=== PATIENT | male | born 1975 | race Caucasian/White ===

== ENCOUNTER → 2020-08-15 11:14 | Outpatient (CLI) | payer OTHER, SELFPAY ==
[2020-08-15 19:53] LABS: COVID19 - ORCAS (NP or Nasal) Negative (Negative)
== END ==
PROVIDERS: Visit Provider Physician Assistant Medical
DX: Z20.822 Contact with and (suspected) exposure to COVID-19 (principal)
CPT/HCPCS: U0003

== ENCOUNTER → 2021-01-26 09:06 | Outpatient (CLI) | payer OTHER, SELFPAY ==
[2021-01-26 19:55] LABS: Add Manual Diff / Slide Review NO; Basophils Absolute Auto 0 /uL (0-100); Eosinophils Absolute Auto 100 /uL (0-450); Hematocrit 40.3 % (41-53); Hemoglobin 13.5 g/dL (13.5-17.5); Lymphocytes Absolute Auto 1100 /uL (1100-4500); Lymphocytes Percent Auto 24.9 % (25-40); Mean Corpuscular HGB Conc 33.4 % (30-36); Mean Corpuscular Hemoglobin 30.7 PG (26-34); Mean Corpuscular Volume 91.8 fL (80-100); Monocytes Absolute Auto 500 /uL (0-900); Monocytes Percent Auto 10.8 % (3-14); Neutrophils Absolute Auto 2700 /uL (1500-7000); Neutrophils Percent Auto 60.3 % (50-75); Platelet Count 237 X10^3/uL (150-400); Red Blood Cell Count 4.39 X10^6/uL (4.5-5.9); Red Cell Distribution Width 13.2 % (11.6-14.8); White Blood Cell Count 4.5 X10^3/uL (4.5-11.0)
[2021-01-26 20:01] LABS: Alanine Aminotransferase 24 IU/L (<50); Albumin 4.2 g/dL (3.5-5.0); Albumin Globulin Ratio 1.5 (1.0-2.8); Alkaline Phosphatase 66 U/L (38-126); Aspartate Aminotransferase 24 IU/L (17-59); BUN Creatinine Ratio 12.9 (6-22); Bilirubin Total 0.5 mg/dL (0.2-1.3); Blood Urea Nitrogen 12 mg/dL (9-20); Calcium 9.1 mg/dL (8.4-10.2); Carbon Dioxide 29 mmol/L (22-32); Chloride 104 mmol/L (98-107); Cholesterol 190 mg/dL (140-199); Estimated Glomerular Filt Rate > 60.0 mL/min (>60); Gamma Glutamyl Transpeptidase 25 U/L (15-73); Globulin 2.8 g/dL (1.7-4.1); Glucose 95 mg/dL (70-100); HDL Cholesterol 47 mg/dL (40-60); HEMOLYSIS < 15 (0-50); LDL Cholesterol Calculated 114 mg/dL (<100); Sodium 138 mmol/L (137-145); Triglycerides 147 mg/dL (35-150)
== END ==
PROVIDERS: PCP Family Medicine; Visit Provider Family Medicine
DX: R03.0 Elevated blood-pressure reading, without diagnosis of hypertension (principal); F10.10 Alcohol abuse, uncomplicated; Z68.33 Body mass index [BMI] 33.0-33.9, adult
CPT/HCPCS: 80053; 80061; 82977; 85025

== ENCOUNTER → 2021-10-05 11:28 | Outpatient (CLI) | payer OTHER, SELFPAY ==
[2021-10-05 20:50] LABS: COVID19 - ORCAS (NP or Nasal) Negative (Negative)
== END ==
PROVIDERS: PCP Family Medicine; Visit Provider Family Medicine
DX: Z20.822 Contact with and (suspected) exposure to COVID-19 (principal); Z01.812 Encounter for preprocedural laboratory examination
CPT/HCPCS: U0003

== ENCOUNTER 2022-01-12 11:38 | Emergency (ER) | payer OTHER, SELFPAY ==
[2022-01-12 12:05] VITALS: BP 171/106; PULSE 80; RESP 17; TEMP 36.6; O2SAT 99; BMI 34.8
[2022-01-12 12:58] LABS: Add Manual Diff / Slide Review NO; Basophils Absolute Auto 0 /uL (0-100); Basophils Percent Auto 0.5 % (0-2); Eosinophils Absolute Auto 100 /uL (0-450); Eosinophils Percent Auto 2.2 % (2-4); Hematocrit 38.9 % (41-53); Hemoglobin 13.7 g/dL (13.5-17.5); Lymphocytes Absolute Auto 1100 /uL (1100-4500); Lymphocytes Percent Auto 28.2 % (25-40); Mean Corpuscular HGB Conc 35.3 % (30-36); Mean Corpuscular Hemoglobin 31.3 PG (26-34); Mean Corpuscular Volume 88.8 fL (80-100); Monocytes Absolute Auto 400 /uL (0-900); Monocytes Percent Auto 10.5 % (3-14); Neutrophils Absolute Auto 2200 /uL (1500-7000); Neutrophils Percent Auto 58.6 % (50-75); Platelet Count 211 X10^3/uL (150-400); Red Blood Cell Count 4.38 X10^6/uL (4.5-5.9); Red Cell Distribution Width 13.8 % (11.6-14.8); White Blood Cell Count 3.7 X10^3/uL (4.5-11.0)
--- NOTE | 2022-01-12 13:28 | ED.ABDPAIN ---
HPI - Abdominal Pain <Luis Carlos Parikh PA-C - Last Filed: 01/12/22 16:43> General Chief Complaint: Abdominal Pain Stated Complaint: ABD PAIN Time Seen by Provider: 01/12/22 12:15 Source: patient Mode of arrival: Ambulatory History of Present Illness HPI narrative: 46-year-old male with past medical history IBS, melanoma presents to the ED with 6 days of lower abdominal pain. Patient states that the pain feels dull, he feels bloated, stays in the lower abdomen. Patient also endorses several episodes of looser stools, diarrhea. Patient denies fever, chills, nausea, vomiting, dysuria, flank pain, chest pain, shortness of breath, lightheadedness, dizziness, syncope. Patient has a distant history of IBS, describes that his digestion has always been up and down with episodic diarrhea. Patient denies hematochezia, melena in the last 6 days. Patient says that he ate some food from a taco truck the day before his symptoms started. Patient had a surgery for melanoma in early September, with an incision in his left groin. Patient states that he had to have 2 rounds of antibiotics while the incision healed. Patient states that he has felt low energy since he has had this melanoma surgery. Patient also noted that he lifted some heavy furniture in the last 6 days, is unsure if he might have pulled some muscles. Related Data Allergies Allergy/AdvReac Type Severity Reaction Status Date / Time No Known Drug Allergies Allergy Verified 01/12/22 12:08 Review of Systems <Luis Carlos Parikh PA-C - Last Filed: 01/12/22 16:43> Review of Systems ROS Unobtainable: All systems reviewed & are unremarkable except as noted in HPI and below Constitutional Constitutional: Denies chills, Denies fatigue, Denies fever(s), Denies frequent falls, Reports lethargy and Denies weakness Eyes Eyes: Denies change in vision, Denies eye discharge, Denies irritation and Denies loss of vision ENT Ears, Nose, Mouth, and Throat: Denies change in voice, Denies dizziness, Denies neck pain, Denies sore throat and Denies throat swelling Cardiovascular Cardiovascular: Denies chest pain, Denies irregular heart rhythm, Denies lightheadedness, Denies palpitations, Denies dyspnea, Denies dyspnea on exertion and Denies orthopnea Respiratory Respiratory: Denies cough, Denies dyspnea, Denies dyspnea on exertion and Denies wheezing Gastrointestinal Gastrointestinal: Reports abdominal pain, Denies melena, Denies hematochezia, Denies change in bowel habits, Reports diarrhea, Reports loose stools, Denies nausea and Denies vomiting Genitourinary Genitourinary: Denies hematuria, Denies dysuria, Denies flank pain, Denies urinary incontinence and Denies urinary urgency Musculoskeletal Musculoskeletal: Denies back pain, Denies muscle weakness, Denies neck pain, Denies numbness and Denies tingling Integumentary/Breasts Skin/Breast: Denies pruritus, Denies erythema, Denies rash and Denies wounds Neurologic Neurologic: Denies behavioral changes, Denies confusion, Denies dizziness, Denies frequent falls, Denies loss of vision, Denies numbness, Denies tingling and Denies weakness Psychiatric Psychiatric: Denies anxiety, Denies behavioral changes, Denies confusion, Denies depression, Denies homicidal ideation and Denies suicidal ideation Endocrine Endocrine: Denies fatigue, Denies flushing and Denies palpitations Hematologic/Lymphatic Hematologic/Lymphatic: Denies easy bruising Allergic/Immunologic Allergic/Immunologic: Denies urticaria, Denies throat swelling and Denies wheezing Patient History <Luis Carlos Parikh PA-C - Last Filed: 01/12/22 16:43> Medical History Chicken pox (~1976) Irritable bowel syndrome (~1997) Pharyngitis Surgical History History of eye surgery (~1998) Family History Father Hyperlipidemia Grandfather Cancer Grandmother Mental health problem Grandfather Stroke Social History Smoking Status: Never smoker Smoking Status: Never smoker alcohol intake frequency: 0-2 drinks per day Substance Use Type: does not use Exam <Luis Carlos Parikh PA-C - Last Filed: 01/12/22 16:43> Narrative Exam Narrative: Const General:?cooperative, healthy appearing and comfortable HENMT Head:?normal to inspection Ears:?hearing grossly normal bilaterally Nose:?external nose normal Face and sinus:?normal facial exam and sinuses nontender Mouth:?oral mucosae normal Throat:?posterior oropharynx normal Eyes General:?appearance normal, both eyes and all related structures Neck Neck:?normal visual inspection and no lymphadenopathy noted Resp Effort & Inspection:?normal respiratory effort Auscultation:?clear to auscultation bilaterally Cardio Rate:?regular rate Rhythm:?regular rhythm GI Abdomen is soft, nondistended. Abdomen is slightly tender to palpation in the suprapubic area. There is a visible surgical scar in the left groin that has healed well with no signs of infection. No palpable inguinal hernia. Testes appear normal Neuro General:?patient alert, patient awake and patient oriented x3 Initial Vital Signs Initial Vital Signs: Vital Signs Temperature 97.8 F 01/12/22 12:05 Pulse Rate 80 01/12/22 12:05 Respiratory Rate 17 01/12/22 12:05 Blood Pressure 171/106 H 01/12/22 12:05 Pulse Oximetry 99 01/12/22 12:05 Oxygen Delivery Method 01/12/22 12:05 <DO Willis Ratliff Last Filed: 01/13/22 08:21> Initial Vital Signs Initial Vital Signs: Vital Signs Temperature 97.8 F 01/12/22 12:05 Pulse Rate 80 01/12/22 12:05 Respiratory Rate 17 01/12/22 12:05 Blood Pressure 171/106 H 01/12/22 12:05 Pulse Oximetry 99 01/12/22 12:05 Oxygen Delivery Method 01/12/22 12:05 Course <Luis Carlos Parikh PA-C - Last Filed: 01/12/22 16:43> Orders Ordered: ED Orders 01/12/22 12:32 Complete Blood Count AUTO DIFF Stat Comprehensive Metabolic Panel Stat Lactate (Lactic Acid) Stat Lipase Stat 01/12/22 14:00 CT abdomen pelvis w con Stat Vital Signs Vital signs: Vital Signs - 8 hr 01/12/22 12:05 01/12/22 15:28 Temperature 97.8 F Pulse Rate 80 Respiratory Rate 17 16 Blood Pressure 171/106 H 141/94 H Pulse Oximetry 99 Oxygen Delivery Method Room Air <DO Willis Ratliff Last Filed: 01/13/22 08:21> Orders Ordered: ED Orders 01/12/22 12:32 Complete Blood Count AUTO DIFF Stat Comprehensive Metabolic Panel Stat Lactate (Lactic Acid) Stat Lipase Stat 01/12/22 14:00 CT abdomen pelvis w con Stat Vital Signs Vital signs: Vital Signs - 8 hr 01/12/22 12:05 01/12/22 15:28 Temperature 97.8 F Pulse Rate 80 Respiratory Rate 17 16 Blood Pressure 171/106 H 141/94 H Pulse Oximetry 99 Oxygen Delivery Method Room Air MDM - Abdominal Pain <Luis Carlos Parikh PA-C - Last Filed: 01/12/22 16:43> Lab Data Result diagrams: 01/12/22 12:32 01/12/22 12:32 Labs: Lab Results 01/12/22 01/12/22 01/12/22 Range/Units 12:32 12:32 12:32 WBC 3.7 L (4.5-11.0) X10^3/uL RBC 4.38 L (4.5-5.9) X10^6/uL Hgb 13.7 (13.5-17.5) g/dL Hct 38.9 L (41-53) % MCV 88.8 (80-100) fL MCH 31.3 (26-34) PG MCHC 35.3 (30-36) % RDW 13.8 (11.6-14.8) % Plt Count 211 (150-400) X10^3/uL Neut % (Auto) 58.6 (50-75) % Lymph % (Auto) 28.2 (25-40) % [place] % (Auto) 10.5 (3-14) % Eos % (Auto) 2.2 (2-4) % Baso % (Auto) 0.5 (0-2) % Neut # (Auto) 2200 (0896-0497) /uL Lymph # (Auto) 1100 (7176-3996) /uL [place] # (Auto) 400 (0-900) /uL Eos # (Auto) 100 (0-450) /uL Baso # (Auto) 0 (0-100) /uL Sodium 138 (137-145) mmol/L Potassium 3.9 (3.4-5.1) mmol/L Chloride 104 (98-107) mmol/L Carbon Dioxide 25 (22-32) mmol/L BUN 11 (9-20) mg/dL Creatinine 0.90 (0.66-1.25) mg/dL Estimated GFR > 60 (>60) mL/min BUN/Creatinine Ratio 12.2 (6-22) Glucose 109 H (70-100) mg/dL Lactate 0.9 (0.7-2.1) mmol/L Calcium 8.8 (8.4-10.2) mg/dL Total Bilirubin 0.9 (0.2-1.3) mg/dL AST 23 (17-59) IU/L ALT 17 (<50) IU/L Alkaline Phosphatase 77 (38-126) U/L Total Protein 7.7 (6.3-8.2) g/dL Albumin 4.3 (3.5-5.0) g/dL Globulin 3.4 (1.7-4.1) g/dL Albumin/Globulin Ratio 1.3 (1.0-2.8) Lipase 60 (23-300) U/L Point of care testing: Urine Dip Bedside Urine Glucose Negative Bedside Urine Bilirubin - Negative Bedside Urine Ketone - Negative Urine Specific [place] 1.015 Bedside Urine Occult Blood - Negative Bedside Urine pH 6.0 Bedside Urine Protein - Negative Bedside Urine Urobilinogen - Negative Bedside Urine Nitrite - Negative Bedside Urine Leukocytes - Negative Esterase MDM Narrative Medical decision making narrative: 46-year-old male with past medical history IBS, melanoma presents to the ED with 6 days of lower abdominal pain. Concern for diverticulitis versus hernia versus colitis versus UTI versus IBS versus gastroenteritis versus surgery complications versus other intra-abdominal pathology. Will obtain labs, lipase, lactate, UA, CT abdomen pelvis. Patient declines pain medications at this time, stating his pain is a discomfort at about a 3 or 4. Will reassess. Workup largely unremarkable. CT shows residual seroma from the prior surgery. No acute findings. Patient's symptoms likely due to gastroenteritis. Recommend supportive care with brat diet, good hydration. ED return precautions were discussed with patient. Patient verbalized understanding. <Anastacia Osullivan, - Last Filed: 01/13/22 08:21> Lab Data Labs: Lab Results 01/12/22 01/12/22 01/12/22 Range/Units 12:32 12:32 12:32 WBC 3.7 L (4.5-11.0) X10^3/uL RBC 4.38 L (4.5-5.9) X10^6/uL Hgb 13.7 (13.5-17.5) g/dL Hct 38.9 L (41-53) % MCV 88.8 (80-100) fL MCH 31.3 (26-34) PG MCHC 35.3 (30-36) % RDW 13.8 (11.6-14.8) % Plt Count 211 (150-400) X10^3/uL Neut % (Auto) 58.6 (50-75) % Lymph % (Auto) 28.2 (25-40) % [place] % (Auto) 10.5 (3-14) % Eos % (Auto) 2.2 (2-4) % Baso % (Auto) 0.5 (0-2) % Neut # (Auto) 2200 (4546-3351) /uL Lymph # (Auto) 1100 (5109-3518) /uL [place] # (Auto) 400 (0-900) /uL Eos # (Auto) 100 (0-450) /uL Baso # (Auto) 0 (0-100) /uL Sodium 138 (137-145) mmol/L Potassium 3.9 (3.4-5.1) mmol/L Chloride 104 (98-107) mmol/L Carbon Dioxide 25 (22-32) mmol/L BUN 11 (9-20) mg/dL Creatinine 0.90 (0.66-1.25) mg/dL Estimated GFR > 60 (>60) mL/min BUN/Creatinine Ratio 12.2 (6-22) Glucose 109 H (70-100) mg/dL Lactate 0.9 (0.7-2.1) mmol/L Calcium 8.8 (8.4-10.2) mg/dL Total Bilirubin 0.9 (0.2-1.3) mg/dL AST 23 (17-59) IU/L ALT 17 (<50) IU/L Alkaline Phosphatase 77 (38-126) U/L Total Protein 7.7 (6.3-8.2) g/dL Albumin 4.3 (3.5-5.0) g/dL Globulin 3.4 (1.7-4.1) g/dL Albumin/Globulin Ratio 1.3 (1.0-2.8) Lipase 60 (23-300) U/L Point of care testing: Urine Dip Bedside Urine Glucose Negative Bedside Urine Bilirubin - Negative Bedside Urine Ketone - Negative Urine Specific [place] 1.015 Bedside Urine Occult Blood - Negative Bedside Urine pH 6.0 Bedside Urine Protein - Negative Bedside Urine Urobilinogen - Negative Bedside Urine Nitrite - Negative Bedside Urine Leukocytes - Negative Esterase Discharge Plan Departure Patient Disposition: Home Clinical Impression: Abdominal pain Instructions: DI for Abdominal Pain-Adult Activity Restrictions/Additional Instructions: You were evaluated in the ED today for abdominal pain. Your labs, urinalysis, CT abdomen pelvis did not show any acute findings. The CT did show a small fluid collection under your surgical scar, for which we recommend follow-up with your surgeon for further evaluation and treatment. Your symptoms are likely due to gastroenteritis, which is food poisoning. Please continue to stay well hydrated, eat bland foods such as bread rice apples and toast. Return to the ED if your symptoms worsen, you are uncontrollably vomiting, you have a fever or chills. Referrals: Ismael Esteban MD [Primary Care Provider] - Visit Report Forms: Patient Portal/API <Anastacia Osullivan DO - Last Filed: 01/13/22 08:21> Cosign ED Attending Yareliature Attestation: I was immediately available in the department for consultation. Documentation has been reviewed. I agree with assessment and plan.
[2022-01-12 13:44] LABS: Lactate (Lactic Acid) 0.9 mmol/L (0.7-2.1)
[2022-01-12 13:48] LABS: Alanine Aminotransferase 17 IU/L (<50); Albumin 4.3 g/dL (3.5-5.0); Albumin Globulin Ratio 1.3 (1.0-2.8); Alkaline Phosphatase 77 U/L (38-126); Aspartate Aminotransferase 23 IU/L (17-59); BUN Creatinine Ratio 12.2 (6-22); Bilirubin Total 0.9 mg/dL (0.2-1.3); Blood Urea Nitrogen 11 mg/dL (9-20); Calcium 8.8 mg/dL (8.4-10.2); Carbon Dioxide 25 mmol/L (22-32); Chloride 104 mmol/L (98-107); Estimated Glomerular Filt Rate > 60 mL/min (>60); Globulin 3.4 g/dL (1.7-4.1); Glucose 109 mg/dL (70-100); HEMOLYSIS < 15 (0-50); Lipase 60 U/L (23-300); Potassium 3.9 mmol/L (3.4-5.1); Sodium 138 mmol/L (137-145); Total Protein 7.7 g/dL (6.3-8.2)
--- NOTE | 2022-01-12 14:00 | DI.CT.S_ITS ---
PROCEDURE: CT ABDOMEN PELVIS W CON INDICATIONS: Lower abdominal pain TECHNIQUE: After the administration of intravenous contrast, axial sections acquired from the lung bases to the pubic symphysis. Coronal and sagittal reformats were performed. For radiation dose reduction, the following was used: automated exposure control, adjustment of mA and/or kV according to patient size. COMPARISON: None. FINDINGS: Image quality: Excellent. Lung bases: Unremarkable. Heart: No significant findings. ABDOMEN: Liver: Unremarkable. Gallbladder: Unremarkable. Biliary ducts: Unremarkable. Pancreas: Unremarkable. Spleen: Unremarkable. Adrenal Glands: Unremarkable. Kidneys and Ureters: Unremarkable. Stomach and Bowel: Stomach, small bowel loops, and colon are unremarkable. The appendix is thin walled and gas filled. Peritoneum: No abnormal intraperitoneal fluid. No free air. Ventral Wall: No hernias. Abdominal Nodes: No retroperitoneal or mesenteric adenopathy by size criteria. Vessels: Aorta and inferior vena cava are normal in size. PELVIS: Pelvic Organs: Unremarkable. Bladder: Unremarkable. Pelvic Nodes: No enlarged lymph nodes. Miscellaneous: No hernias are seen. Surgical changes noted at the left inguinal canal. There is a 1.4 x 4.0 by 2.8 cm fluid collection within a surgical scar. Bones: Unremarkable. IMPRESSION: 1. No acute intra-abdominal findings. Normal appendix. 2. Probable small seroma within the surgical bed in the left groin. No findings to suggest tumor recurrence. Dictated by: Amparo Steward M.D. on 01/12/2022 at 14:34 Approved by: Amparo Steward M.D. on 01/12/2022 at 14:37
[2022-01-12 15:28] VITALS: BP 141/94; RESP 16
== END 2022-01-12 15:42 | disposition home or self-care (01) ==
PROVIDERS: Emergency Medicine; Emergency Provider Student in an Organized Health Care Education/Training Program; PCP Family Medicine
DX: R10.30 Lower abdominal pain, unspecified (principal)
CPT/HCPCS: 36415; 74177; 80053; 81003; 83605; 83690; 85025; 99284

== ENCOUNTER → 2022-04-06 10:37 | Outpatient (CLI) | payer OTHER, SELFPAY ==
[2022-04-06 20:03] LABS: Add Manual Diff / Slide Review NO; Basophils Absolute Auto 0 /uL (0-100); Basophils Percent Auto 0.9 % (0-2); Eosinophils Absolute Auto 100 /uL (0-450); Eosinophils Percent Auto 3.3 % (2-4); Hematocrit 42.7 % (41-53); Hemoglobin 14.3 g/dL (13.5-17.5); Lymphocytes Absolute Auto 1100 /uL (1100-4500); Lymphocytes Percent Auto 28.1 % (25-40); Mean Corpuscular HGB Conc 33.6 % (30-36); Mean Corpuscular Hemoglobin 30.8 PG (26-34); Mean Corpuscular Volume 91.6 fL (80-100); Monocytes Absolute Auto 400 /uL (0-900); Monocytes Percent Auto 9.2 % (3-14); Neutrophils Absolute Auto 2400 /uL (1500-7000); Neutrophils Percent Auto 58.5 % (50-75); Platelet Count 243 X10^3/uL (150-400); Red Blood Cell Count 4.66 X10^6/uL (4.5-5.9); Red Cell Distribution Width 13.5 % (11.6-14.8); White Blood Cell Count 4.1 X10^3/uL (4.5-11.0)
[2022-04-06 20:13] LABS: Alanine Aminotransferase 27 IU/L (<50); Albumin 4.3 g/dL (3.5-5.0); Albumin Globulin Ratio 1.3 (1.0-2.8); Alkaline Phosphatase 78 U/L (38-126); Aspartate Aminotransferase 27 IU/L (17-59); BUN Creatinine Ratio 15.2 (6-22); Bilirubin Total 0.6 mg/dL (0.2-1.3); Blood Urea Nitrogen 14 mg/dL (9-20); Calcium 8.9 mg/dL (8.4-10.2); Carbon Dioxide 27 mmol/L (22-32); Chloride 103 mmol/L (98-107); Cholesterol 234 mg/dL (140-199); Estimated Glomerular Filt Rate > 60 mL/min (>60); Globulin 3.3 g/dL (1.7-4.1); Glucose 96 mg/dL (70-100); HDL Cholesterol 51 mg/dL (40-60); HEMOLYSIS < 15 (0-50); LDL Cholesterol Calculated 125 mg/dL (<100); Potassium 4.3 mmol/L (3.4-5.1); Sodium 138 mmol/L (137-145); Total Protein 7.6 g/dL (6.3-8.2); Triglycerides 289 mg/dL (35-150)
== END ==
PROVIDERS: PCP Family Medicine; Visit Provider Family Medicine
DX: Z00.00 Encounter for general adult medical examination without abnormal findings (principal); R03.0 Elevated blood-pressure reading, without diagnosis of hypertension; Z68.33 Body mass index [BMI] 33.0-33.9, adult
CPT/HCPCS: 80053; 80061; 85025

== ENCOUNTER 2022-07-01 08:51 | Day surgery (SDC) | payer OTHER, SELFPAY ==
[2022-07-01 09:26] VITALS: BP 136/89; PULSE 78; RESP 16; TEMP 36.8; O2SAT 97; BMI 35.5
[2022-07-01 09:39] VITALS: BMI 35.5
--- NOTE | 2022-07-01 11:25 | PM.HP.1 ---
History of Present Illness History of Present Illness Date Patient Seen: 07/01/22 Time Patient Seen: 11:25 Chief complaint: SDC Narrative: Lan is a 47-year-old man who is here for colonoscopy. He has never had 1 before. He has no known family history of colon cancer. Patient History Medical History (Updated 07/01/22 @ 11:25 by Al Robles MD) Chicken pox (~1976) Irritable bowel syndrome (~1997) Sleep apnea in adult Tinea corporis Surgical History History of eye surgery (~1998) Family & Social History Family History Father Hyperlipidemia Grandfather Cancer Grandmother Mental health problem Grandfather Stroke Social History: household members spouse Tobacco & Substance use: Smoking Status Never smoker alcohol intake frequency a few times a week Substance Use Type does not use Meds Home Medications and Allergies Home Medications Medication Instructions Recorded Confirmed Type diclofenac sodium 1 % topical gel 2 g topical QID #100 grams 06/01/22 07/01/22 Rx Allergies Allergy/AdvReac Type Severity Reaction Status Date / Time No Known Drug Allergies Allergy Verified 01/12/22 12:08 Exam Vital Signs (past 8 hours): - 07/01/22 09:26 Temperature 98.3 F Pulse Rate 78 Respiratory Rate 16 Blood Pressure 136/89 Pulse Oximetry 97 Oxygen Delivery Method Room Air Oxygen Delivery Method Room Air Const General: No acute distress Resp Effort & Inspection: normal respiratory effort Assessment & Plan Assessment and plan (1) Colon cancer screening: Status: Acute Plan We reviewed the risks and benefits of colonoscopy for colon cancer screening and he would like to proceed. Time Spent With Patient Critical Care time: I spent a total of [] minutes of critical care time on this patient's care today; this time is exclusive of procedural time.
--- NOTE | 2022-07-01 11:44 | SUR.OPER ---
GLASSES IN LABELED BAG TO PACU WITH PATIENT
--- NOTE | 2022-07-01 11:58 | P.OP.COLON_ITS ---
Operative Date/Time/Diagnoses Date of procedure: 07/01/22 Time of procedure: 11:58 Pre-op diagnosis: Colon cancer screening Post-op diagnosis: same Procedure & Clinicians Study performed: Colonoscopies Same procedure as scheduled: Yes Surgeon: Al Robles Procedure Notes Procedure in detail: Surgeon: Al Robles MD Anesthesia: Carmina Umaña [employer] Procedure: The patient was brought to the endoscopy suite, placed in left lateral decubitus position. The patient was connected to monitoring devices. A time-out was performed. Sedation was administered. Once the patient was adequately sedated, a digital rectal exam was performed and was normal. The scope was then inserted and advanced to the cecum where the appendiceal orifice was identified and photographed. The scope was then slowly withdrawn over greater than 6 minutes. The mucosa was thoroughly inspected. There were no abnormalities seen. The scope was retroflexed in the rectum. There were some mild internal hemorrhoids but no other abnormalities were seen. The scope was straightened and removed. The patient was awakened and brought to recovery. Scope withdrawal time: 8 minutes Sedation time: 15 minutes EBL: 0 Findings: Normal colon Post-procedure Recommendations: Colonoscopy in 10 years Disposition: PACU
[2022-07-01 12:00] VITALS: BP 116/83; PULSE 75; RESP 14; TEMP 36.9; O2SAT 97
[2022-07-01 12:05] VITALS: BP 108/79; PULSE 71; RESP 13; TEMP 36.6; O2SAT 96
[2022-07-01 12:20] VITALS: BP 129/81; PULSE 71; RESP 16; TEMP 36.4; O2SAT 97
== END 2022-07-01 12:29 | disposition home or self-care (01) ==
PROVIDERS: PCP Family Medicine; Referring Provider Surgery; Visit Provider Surgery
PROC: 0DJD8ZZ Inspection of Lower Intestinal Tract, Via Natural or Artificial Opening Endoscopic (ICD-10-PCS; CPT 45378; principal; 2022-07-01 10:15)
DX: Z12.11 Encounter for screening for malignant neoplasm of colon (principal); K64.8 Other hemorrhoids
CPT/HCPCS: 45378; J2704

== ENCOUNTER → 2022-08-16 13:32 | Outpatient (CLI) | payer OTHER, SELFPAY ==
[2022-08-16 19:47] LABS: C-Reactive Protein Quant 0.5 mg/dL (<1.0)
[2022-08-16 20:12] LABS: Prostate Specific Antigen Scrn 1.16 ng/mL (0.1-4.0)
[2022-08-16 21:12] LABS: Erythrocyte Sedimentation Rate 7 MM/HR (0-15)
[2022-08-20 17:11] LABS: ANA Screen, IFA Negative (.)
== END ==
PROVIDERS: PCP Family Medicine; Visit Provider Family Medicine
DX: G89.29 Other chronic pain (principal); M25.562 Pain in left knee; M25.561 Pain in right knee; Z12.5 Encounter for screening for malignant neoplasm of prostate
CPT/HCPCS: 85651; 86038; 86140; G0103

== ENCOUNTER → 2022-10-12 14:33 | Outpatient (CLI) | payer OTHER, SELFPAY ==
[2022-10-12 19:52] LABS: HEMOLYSIS < 15 (0-50); Iron 98 ug/dL (49-181)
[2022-10-12 20:05] LABS: Percent Iron Saturation 31 % (20-50); Total Iron Binding Capacity 321 ug/dL (261-462); Transferrin 242 mg/dL (206-381)
[2022-10-12 20:06] LABS: C-Reactive Protein Quant < 0.5 mg/dL (<1.0)
[2022-10-12 20:36] LABS: Ferritin 135 ng/mL (18-464)
== END ==
PROVIDERS: PCP Family Medicine; Visit Provider Pediatrics
DX: D50.9 Iron deficiency anemia, unspecified (principal); G25.81 Restless legs syndrome; G47.9 Sleep disorder, unspecified
CPT/HCPCS: 82728; 83540; 83550; 86140

== ENCOUNTER → 2022-12-06 09:10 | Outpatient (CLI) | payer OTHER, SELFPAY ==
[2022-12-06 11:26] LABS: Add Manual Diff / Slide Review NO; Basophils Absolute Auto 0 /uL (0-100); Basophils Percent Auto 0.6 % (0-2); Eosinophils Absolute Auto 100 /uL (0-450); Eosinophils Percent Auto 2.1 % (2-4); Hematocrit 41.7 % (41-53); Hemoglobin 14.5 g/dL (13.5-17.5); Lymphocytes Absolute Auto 900 /uL (1100-4500); Lymphocytes Percent Auto 21.3 % (25-40); Mean Corpuscular HGB Conc 34.9 % (30-36); Mean Corpuscular Hemoglobin 31.6 PG (26-34); Mean Corpuscular Volume 90.4 fL (80-100); Monocytes Absolute Auto 400 /uL (0-900); Monocytes Percent Auto 8.7 % (3-14); Neutrophils Absolute Auto 2800 /uL (1500-7000); Neutrophils Percent Auto 67.3 % (50-75); Platelet Count 229 X10^3/uL (150-400); Red Blood Cell Count 4.61 X10^6/uL (4.5-5.9); Red Cell Distribution Width 13.1 % (11.6-14.8); White Blood Cell Count 4.2 X10^3/uL (4.5-11.0)
[2022-12-06 11:53] LABS: BUN Creatinine Ratio 13.5 (6-22); Blood Urea Nitrogen 13 mg/dL (9-20); Calcium 9.3 mg/dL (8.4-10.2); Carbon Dioxide 30 mmol/L (22-32); Chloride 101 mmol/L (98-107); Cholesterol 178 mg/dL (140-199); Estimated Glomerular Filt Rate > 60 mL/min (>60); Glucose 98 mg/dL (70-100); HDL Cholesterol 46 mg/dL (40-60); HEMOLYSIS < 15 (0-50); LDL Cholesterol Calculated 81 mg/dL (<100); Sodium 137 mmol/L (137-145); Triglycerides 256 mg/dL (35-150)
[2022-12-06 12:18] LABS: TSH w/ Reflex to FT4 1.43 uIU/mL (0.47-4.68)
[2022-12-07 06:06] LABS: Labcorp Hemoglobin (Hb) A1c 5.4 % (4.8-5.6)
== END ==
PROVIDERS: PCP Family Medicine; Referring Provider Family Medicine; Visit Provider Family Medicine
DX: E78.2 Mixed hyperlipidemia (principal); F10.10 Alcohol abuse, uncomplicated; G47.30 Sleep apnea, unspecified; M54.2 Cervicalgia; M79.602 Pain in left arm; R07.9 Chest pain, unspecified; R68.84 Jaw pain; Z68.33 Body mass index [BMI] 33.0-33.9, adult
CPT/HCPCS: 36415; 80048; 80061; 83036; 84443; 85025

== ENCOUNTER → 2023-01-17 09:10 | Outpatient (CLI) | payer OTHER, SELFPAY ==
--- NOTE | 2023-01-18 03:12 | DI.NM.S_ITS ---
DATE OF SERVICE: 01/17/2023 INDICATIONS: Left arm pain, neck pain, chest pain, hyperlipidemia, morbid obesity. RADIOPHARMACEUTICAL: 27.5 millicurie technetium-99m Myoview IV was injected at stress and 12.0 millicurie technetium-99m Myoview IV was injected at rest. CARDIAC STRESS: The patient underwent exercise perfusion study under the supervision of an attending staff. The patient walked on Rick protocol for 6 minutes and 32 seconds, achieved maximum heart rate of 166, which was 97 percent of target heart rate. Resting blood pressure 126/82 mmHg. Peak blood pressure 174/100 mmHg. 7 METs of workload achieved. Baseline rhythm was sinus. During stress, no convincing ischemic changes seen. Rare PVCs and PACs in recovery. No complex arrhythmias. The patient did not have chest pain, however, felt fatigue and dyspnea during stress. RAW DATA: There is increased subdiaphragmatic activity. Soft shadow seen around the heart. The patient's weight is 260 pounds. GATED STUDY: Stress LV ejection fraction 78% without any obvious wall motion abnormalities. Resting end-diastolic volume 116 mL. TID ratio 0.87, which is within normal limits. Lung/heart ratio 0.31, which is within normal limits. MYOCARDIAL PERFUSION SCAN: Stress supine, resting supine and stress prone images were compared to each other. Stress supine and resting supine images revealed moderate-size, moderate to severely decreased perfusion of inferior wall, extending into the [id number] inferolateral wall, as well as distal anterior wall and distal anterior septum, which got completely normalized during stress prone images, suggestive of tissue attenuation artifact. No convincing ischemia infarction pattern on stress prone images. CONCLUSION: I will call this study a normal myocardial perfusion study with evidence of tissue attenuation artifact, which got resolved during stress prone images. Diminished exercise tolerance. Preserved left ventricular function. No complex arrhythmias. No anginal symptoms. The patient felt fatigue and dyspnea during exercise. Overall, low-risk exercise perfusion study. Lan Kendrick - KATHERYN/wenceslao/anna doc#: [id number]/job#: [id number] dd: 01/17/2023 17:13:00 dt: 01/18/2023 02:59:00 DICTATING MD/COPIES TO: Aniket Olivarez MD COPIES MNE: TREVA;
== END ==
PROVIDERS: PCP Family Medicine; Referring Provider Family Medicine; Visit Provider Family Medicine
DX: R07.9 Chest pain, unspecified (principal); R68.84 Jaw pain
CPT/HCPCS: 78452; 93017; A9502

== ENCOUNTER → 2023-04-11 13:06 | Outpatient (CLI) | payer OTHER, SELFPAY ==
[2023-04-11 19:43] LABS: BUN Creatinine Ratio 21.6 (6-22); Blood Urea Nitrogen 22 mg/dL (9-20); Calcium 9.4 mg/dL (8.4-10.2); Carbon Dioxide 25 mmol/L (22-32); Chloride 100 mmol/L (98-107); Cholesterol 145 mg/dL (140-199); Estimated Glomerular Filt Rate > 60 mL/min (>60); Glucose 109 mg/dL (70-100); HDL Cholesterol 55 mg/dL (40-60); HEMOLYSIS < 15 (0-50); LDL Cholesterol Calculated 34 mg/dL (<100); Potassium 3.8 mmol/L (3.4-5.1); Sodium 134 mmol/L (137-145); Triglycerides 279 mg/dL (35-150)
[2023-04-11 19:45] LABS: Add Manual Diff / Slide Review NO; Basophils Absolute Auto 0 /uL (0-100); Basophils Percent Auto 0.4 % (0-2); Eosinophils Absolute Auto 100 /uL (0-450); Hematocrit 38.9 % (41-53); Hemoglobin 13.4 g/dL (13.5-17.5); Lymphocytes Absolute Auto 1200 /uL (1100-4500); Lymphocytes Percent Auto 29.2 % (25-40); Mean Corpuscular HGB Conc 34.4 % (30-36); Mean Corpuscular Hemoglobin 30.4 PG (26-34); Mean Corpuscular Volume 88.5 fL (80-100); Monocytes Absolute Auto 400 /uL (0-900); Monocytes Percent Auto 10.2 % (3-14); Neutrophils Absolute Auto 2400 /uL (1500-7000); Neutrophils Percent Auto 58.2 % (50-75); Platelet Count 249 X10^3/uL (150-400); Red Blood Cell Count 4.39 X10^6/uL (4.5-5.9); Red Cell Distribution Width 14.4 % (11.6-14.8); White Blood Cell Count 4.2 X10^3/uL (4.5-11.0)
== END ==
PROVIDERS: PCP Family Medicine; Visit Provider Family Medicine
DX: I10 Essential (primary) hypertension (principal); R07.89 Other chest pain; E78.2 Mixed hyperlipidemia; D72.810 Lymphocytopenia
CPT/HCPCS: 80048; 80061; 85025

== ENCOUNTER 2023-05-20 21:50 | Emergency (ER) | payer OTHER, SELFPAY ==
[2023-05-20 21:52] VITALS: BP 164/104; PULSE 86; RESP 18; TEMP 36.9; O2SAT 100; BMI 34.8
--- NOTE | 2023-05-20 22:04 | DI.RAD.S_ITS ---
PROCEDURE: XR CHEST 1V INDICATIONS: chest pain TECHNIQUE: One view of the chest was acquired. COMPARISON: None. FINDINGS: Surgical changes and devices: None. Lungs and pleura: Lungs are clear. No pleural effusions or pneumothorax. Mediastinum: Mediastinal contours appear normal. Heart size is normal. Bones and chest wall: No suspicious bony lesions. Overlying soft tissues appear unremarkable. IMPRESSION: No acute cardiopulmonary abnormality is seen. Dictated by: Mickey Fontanez M.D. on 05/21/2023 at 0:01 Approved by: Mickey Fontanez M.D. on 05/21/2023 at 0:01
[2023-05-20 22:28] VITALS: PULSE 75; RESP 9; O2SAT 100
[2023-05-20 22:28] LABS: Add Manual Diff / Slide Review NO; Basophils Absolute Auto 100 /uL (0-100); Basophils Percent Auto 1.1 % (0-2); Eosinophils Absolute Auto 0 /uL (0-450); Eosinophils Percent Auto 0.4 % (2-4); Hematocrit 45.4 % (41-53); Hemoglobin 15.3 g/dL (13.5-17.5); Lymphocytes Absolute Auto 1800 /uL (1100-4500); Mean Corpuscular HGB Conc 33.7 % (30-36); Mean Corpuscular Hemoglobin 30.1 PG (26-34); Mean Corpuscular Volume 89.4 fL (80-100); Monocytes Absolute Auto 700 /uL (0-900); Neutrophils Absolute Auto 6000 /uL (1500-7000); Neutrophils Percent Auto 69.5 % (50-75); Platelet Count 280 X10^3/uL (150-400); Red Blood Cell Count 5.07 X10^6/uL (4.5-5.9); Red Cell Distribution Width 14.1 % (11.6-14.8); White Blood Cell Count 8.6 X10^3/uL (4.5-11.0)
[2023-05-20 22:30] VITALS: PULSE 87; RESP 20; O2SAT 100
--- NOTE | 2023-05-20 22:46 | ED.CHESTPAIN ---
HPI - Chest Pain General Chief Complaint: Chest Pain Stated Complaint: weakness/BP high/Chest pressure Time Seen by Provider: 05/20/23 22:06 Source: patient Mode of arrival: Ambulatory Limitations: no limitations History of Present Illness HPI narrative: Patient is a 48-year-old male. He states he woke up this morning with sensations of feeling like his arms were tingling/numb. As the day went on he also developed some chest discomfort. Has been persistent throughout the day. He feels like his arm numbness has actually improved. He the arm numbness was bilateral with right being greater than left. No shortness of breath. No cough. Never had symptoms like this in the past. He also just generally does not feel very well. No fevers. No cough. Loss of appetite. Was seen by EMT he is on [facility] who advised that he come to the emergency department for further evaluation. He did take 4 baby aspirin prior to arrival. Related Data Home Medications Medication Instructions Recorded Confirmed aspirin 81 mg tablet,delayed 81 mg PO DAILY 03/21/23 03/21/23 release (Adult Aspirin Regimen) Previous Rx's Medication Instructions Recorded atorvastatin 20 mg tablet (Lipitor) 20 mg PO DAILY #90 tabs 12/03/22 losartan 50 mg-hydrochlorothiazide 1 tab PO DAILY #90 tabs 12/03/22 12.5 mg tablet Allergies Allergy/AdvReac Type Severity Reaction Status Date / Time No Known Drug Allergies Allergy Verified 12/22/22 11:26 Review of Systems Review of Systems ROS Unobtainable: All systems reviewed & are unremarkable except as noted in HPI and below Patient History Medical History Sleep apnea in adult Chicken pox (~1976) Irritable bowel syndrome (~1997) Surgical History History of eye surgery (~1998) Family History Father Hyperlipidemia Grandfather Cancer Grandmother Mental health problem Grandfather Stroke Social History household members: spouse Smoking Status: Never smoker Smoking Status: Never smoker alcohol intake frequency: 3 or more drinks per day Alcohol type: beer, wine and hard liquor Substance Use Type: does not use Exam Initial Vital Signs Initial Vital Signs: Vital Signs Temperature 98.5 F 05/20/23 21:52 Pulse Rate 86 05/20/23 21:52 Respiratory Rate 18 05/20/23 21:52 Blood Pressure 164/104 H 05/20/23 21:52 Pulse Oximetry 100 05/20/23 21:52 Oxygen Delivery Method Room Air 05/20/23 21:52 Const General: cooperative, comfortable and No ill appearing HENMT Head: normal to inspection and normocephalic Resp Effort & Inspection: normal respiratory effort Auscultation: clear to auscultation bilaterally Cardio Rate: regular rate Rhythm: regular rhythm GI Inspection: normal to inspection Skin General: no rashes or lesions noted Neuro General: patient alert, patient awake and moves all extremities Extrem General: normal to inspection Scores HEART Score Heart Score history: Slightly Suspicious Heart Score EKG: Normal Heart Score Age: 45-64 years old Heart Score risk factors: 1-2 risk factors Heart Score troponin: < or = to normal limit Heart Score Total: 2 Course Orders Ordered: ED Orders 05/20/23 22:04 XR chest 1V Stat EKG-12 Lead Stat 05/20/23 22:18 Complete Blood Count AUTO DIFF Stat 05/20/23 23:09 Comprehensive Metabolic Panel Stat Lipase Stat Magnesium Stat PTT Partial Thromboplastin Jose Stat Prothrombin Time INR Stat Troponin & CK Cardiac Panel Stat 05/21/23 01:03 Troponin & CK Cardiac Panel Stat Vital Signs Vital signs: Vital Signs - 8 hr 05/20/23 21:52 05/20/23 22:28 05/20/23 22:30 Temperature 98.5 F Pulse Rate 86 75 87 Respiratory Rate 18 9 L 20 Blood Pressure 164/104 H Pulse Oximetry 100 100 100 Oxygen Delivery Method Room Air 05/20/23 23:00 05/20/23 23:30 05/20/23 23:38 Temperature Pulse Rate 73 75 79 Respiratory Rate 8 L 11 L 16 Blood Pressure 146/88 H Pulse Oximetry 97 98 96 Oxygen Delivery Method 05/20/23 23:38 05/21/23 00:00 05/21/23 00:30 Temperature Pulse Rate 69 77 Respiratory Rate Blood Pressure 146/88 H Pulse Oximetry 97 97 Oxygen Delivery Method 05/21/23 01:00 05/21/23 01:22 05/21/23 01:22 Temperature Pulse Rate 79 72 72 Respiratory Rate 18 Blood Pressure 152/89 H Pulse Oximetry 98 99 97 Oxygen Delivery Method Room Air 05/21/23 01:22 Temperature Pulse Rate Respiratory Rate Blood Pressure 152/89 H Pulse Oximetry Oxygen Delivery Method MDM - Chest Pain Lab Data Attestation: I reviewed the patient's lab results. 05/20/23 22:18 05/20/23 23:09 Labs: Lab Results 05/20/23 05/20/23 05/21/23 Range/Units 22:18 23:09 01:03 WBC 8.6 (4.5-11.0) X10^3/uL RBC 5.07 (4.5-5.9) X10^6/uL Hgb 15.3 (13.5-17.5) g/dL Hct 45.4 (41-53) % MCV 89.4 (80-100) fL MCH 30.1 (26-34) PG MCHC 33.7 (30-36) % RDW 14.1 (11.6-14.8) % Plt Count 280 (150-400) X10^3/uL Neut % (Auto) 69.5 (50-75) % Lymph % (Auto) 21.0 L (25-40) % [place] % (Auto) 8.0 (3-14) % Eos % (Auto) 0.4 L (2-4) % Baso % (Auto) 1.1 (0-2) % Neut # (Auto) 6000 (2523-0792) /uL Lymph # (Auto) 1800 (6845-4163) /uL [place] # (Auto) 700 (0-900) /uL Eos # (Auto) 0 (0-450) /uL Baso # (Auto) 100 (0-100) /uL PT 12.6 H (9.4-12.5) SECONDS INR 1.1 (0.9-1.3) APTT 28 (25.1-36.5) SECONDS Sodium 134 L (137-145) mmol/L Potassium 3.4 (3.4-5.1) mmol/L Chloride 100 (98-107) mmol/L Carbon Dioxide 23 (22-32) mmol/L BUN 16 (9-20) mg/dL Creatinine 0.90 (0.66-1.25) mg/dL Estimated GFR > 60 (>60) mL/min BUN/Creatinine Ratio 17.8 (6-22) Glucose 99 (70-100) mg/dL Calcium 9.5 (8.4-10.2) mg/dL Magnesium 2.2 (1.6-2.3) mg/dL Total Bilirubin 1.2 (0.2-1.3) mg/dL AST 26 (17-59) IU/L ALT 32 (<50) IU/L Alkaline Phosphatase 76 (38-126) U/L Total Creatine Kinase 76 71 (55-170) U/L Troponin I < 0.012 < 0.012 (0.01-0.034) ng/mL Total Protein 8.0 (6.3-8.2) g/dL Albumin 4.6 (3.5-5.0) g/dL Globulin 3.4 (1.7-4.1) g/dL Albumin/Globulin Ratio 1.4 (1.0-2.8) Lipase 78 (23-300) U/L Urine Dip Bedside Urine Glucose Negative Bedside Urine Bilirubin - Negative Bedside Urine Ketone +/- 5 Urine Specific [place] 1.010 Bedside Urine Occult Blood - Negative Bedside Urine pH 6 Bedside Urine Protein - Negative Bedside Urine Urobilinogen - Negative Bedside Urine Nitrite - Negative Bedside Urine Leukocytes - Negative Esterase Imaging Data Chest x-ray: Radiologist's Impression: PROCEDURE: XR CHEST 1V INDICATIONS: chest pain TECHNIQUE: One view of the chest was acquired. COMPARISON: None. FINDINGS: Surgical changes and devices: None. Lungs and pleura: Lungs are clear. No pleural effusions or pneumothorax. Mediastinum: Mediastinal contours appear normal. Heart size is normal. Bones and chest wall: No suspicious bony lesions. Overlying soft tissues appear unremarkable. IMPRESSION: No acute cardiopulmonary abnormality is seen. ECG Data Attestation: I personally reviewed and interpreted this ECG as follows: Interpretation: Sinus rhythm Left axis deviation Normal QRS Normal QTC No ST T wave changes MDM Narrative Medical decision making narrative: Patient has a low risk heart score. Nonischemic EKG, 2- troponins. He states that approximately 6 months ago he had a nuclear stress test for similar symptoms that he had today and was told that everything was okay. His chest x-ray is unremarkable. Low suspicion for infectious process. Discussion with the patient regarding starting a GI medication to see if it helps his symptoms. Will have him contact his primary doctor for follow-up. He expressed understanding and agreement with plan. Discharge Plan Departure Patient Disposition: Home Clinical Impression: Atypical chest pain Instructions: DI for Atypical Chest Pain Activity Restrictions/Additional Instructions: I do recommend that you continue to take all of your medications as directed. I also recommend that you take your blood pressure at home like we discussed and record the results of that you could follow-up with your primary doctor regarding any abnormalities with this. You can also consider taking a medicine called Pepcid/famotidine. You can purchase this [id number]. It has a 1 time a day medicine that potentially could be helpful if this is a GI issue. Return to the emergency department for new symptoms. Prescriptions: No Action atorvastatin [Lipitor] 20 mg tablet 20 mg PO DAILY Qty: 90 3RF losartan-hydrochlorothiazide 50-12.5 mg tablet 1 tab PO DAILY Qty: 90 3RF aspirin [Adult Aspirin Regimen] 81 mg tablet,delayed release (DR/EC) 81 mg PO DAILY Referrals: Jose Schroeder MD [Primary Care Provider] - Stand Alone Forms: Patient Portal/API
[2023-05-20 23:00] VITALS: PULSE 73; RESP 8; O2SAT 97
[2023-05-20 23:29] LABS: INR 1.1 (0.9-1.3); Prothrombin Time 12.6 SECONDS (9.4-12.5)
[2023-05-20 23:30] VITALS: BP 146/88; PULSE 75; RESP 11; O2SAT 98
[2023-05-20 23:31] LABS: PTT Partial Thromboplastin Tim 28 SECONDS (25.1-36.5)
[2023-05-20 23:33] LABS: Alanine Aminotransferase 32 IU/L (<50); Albumin 4.6 g/dL (3.5-5.0); Albumin Globulin Ratio 1.4 (1.0-2.8); Alkaline Phosphatase 76 U/L (38-126); Aspartate Aminotransferase 26 IU/L (17-59); BUN Creatinine Ratio 17.8 (6-22); Bilirubin Total 1.2 mg/dL (0.2-1.3); Blood Urea Nitrogen 16 mg/dL (9-20); Calcium 9.5 mg/dL (8.4-10.2); Carbon Dioxide 23 mmol/L (22-32); Chloride 100 mmol/L (98-107); Creatine Kinase 76 U/L (55-170); Estimated Glomerular Filt Rate > 60 mL/min (>60); Globulin 3.4 g/dL (1.7-4.1); Glucose 99 mg/dL (70-100); HEMOLYSIS < 15 (0-50); Lipase 78 U/L (23-300); Magnesium 2.2 mg/dL (1.6-2.3); Potassium 3.4 mmol/L (3.4-5.1); Sodium 134 mmol/L (137-145)
[2023-05-20 23:38] VITALS: BP 146/88; PULSE 79; RESP 16; O2SAT 96
[2023-05-20 23:44] LABS: Troponin I < 0.012 ng/mL (0.01-0.034)
[2023-05-21] VITALS: PULSE 69; O2SAT 97
[2023-05-21 00:30] VITALS: PULSE 77; O2SAT 97
[2023-05-21 01:00] VITALS: PULSE 79; O2SAT 98
[2023-05-21 01:22] VITALS: BP 152/89; PULSE 72; RESP 18; O2SAT 97; O2SAT 99
[2023-05-21 01:32] LABS: Creatine Kinase 71 U/L (55-170)
[2023-05-21 01:45] LABS: Troponin I < 0.012 ng/mL (0.01-0.034)
== END 2023-05-21 02:05 | disposition home or self-care (01) ==
PROVIDERS: Emergency Provider Emergency Medicine; PCP Family Medicine
DX: R07.89 Other chest pain (principal); R20.2 Paresthesia of skin
CPT/HCPCS: 36415; 71045; 80053; 81003; 82550; 83690; 83735; 84484; 85025; 85610; 85730; 93005; 93010; 99283; 99284

== ENCOUNTER 2024-05-18 10:45 | Emergency (ER) | payer OTHER, SELFPAY ==
[2024-05-18 10:49] VITALS: BP 140/90; PULSE 76; RESP 14; TEMP 36.1; O2SAT 100; BMI 34.8
--- NOTE | 2024-05-18 11:00 | EKG_ITS ---
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
[2024-05-18 11:43] VITALS: PULSE 64; O2SAT 99
[2024-05-18 11:44] VITALS: BP 135/90
[2024-05-18 11:45] VITALS: BP 135/90
[2024-05-18 12:16] LABS: Add Manual Diff / Slide Review NO; Basophils Absolute Auto 0 /uL (0-100); Basophils Percent Auto 0.8 % (0-2); Eosinophils Absolute Auto 100 /uL (0-450); Eosinophils Percent Auto 1.5 % (2-4); Hematocrit 40.6 % (41-53); Lymphocytes Absolute Auto 1000 /uL (1100-4500); Lymphocytes Percent Auto 25.2 % (25-40); Mean Corpuscular HGB Conc 34.6 % (30-36); Mean Corpuscular Hemoglobin 31.1 PG (26-34); Mean Corpuscular Volume 89.8 fL (80-100); Monocytes Absolute Auto 300 /uL (0-900); Monocytes Percent Auto 7.4 % (3-14); Neutrophils Absolute Auto 2600 /uL (1500-7000); Neutrophils Percent Auto 65.1 % (50-75); Platelet Count 235 X10^3/uL (150-400); Red Blood Cell Count 4.52 X10^6/uL (4.5-5.9)
[2024-05-18 12:27] LABS: Alanine Aminotransferase 34 IU/L (<50); Albumin 4.8 g/dL (3.5-5.0); Albumin Globulin Ratio 1.6 (1.0-2.8); Alkaline Phosphatase 67 U/L (38-126); Aspartate Aminotransferase 30 IU/L (17-59); BUN Creatinine Ratio 12.4 (6-22); Bilirubin Total 1.1 mg/dL (0.2-1.3); Blood Urea Nitrogen 11 mg/dL (9-20); Calcium 9.3 mg/dL (8.4-10.2); Carbon Dioxide 24 mmol/L (22-32); Chloride 105 mmol/L (98-107); Estimated Glomerular Filt Rate > 60 mL/min (>60); Glucose 104 mg/dL (70-100); HEMOLYSIS 23 (0-50); Lipase 74 U/L (23-300); Potassium 3.7 mmol/L (3.4-5.1); Sodium 137 mmol/L (137-145); Total Protein 7.8 g/dL (6.3-8.2)
--- NOTE | 2024-05-18 12:44 | ED.GENADULT ---
HPI - General Adult General Chief complaint: Abdominal Pain Stated complaint: recurring Low back pain and Lower stomach pain Time Seen by Provider: 05/18/24 11:41 Mode of arrival: Ambulatory History of Present Illness HPI narrative: 49-year-old gentleman from [facility] presents complaining of low right-sided abdominal pain. Has been intermittently present since April 24, generally in the right upper quadrant area he describes it radiating around through his back states that it is going to his lower back however he points to upper flanks. The pain waxes and wanes he was seen by his primary care physician about a week after symptoms started seemed to be getting better over the last 24 hours now again getting worse with this continued bandlike pain in the upper abdomen. No fevers, chills, weight loss. He is noted some loose stools but no overt diarrhea or Urinary symptoms Related Data Previous Rx's Medication Instructions Recorded atorvastatin 20 mg tablet (Lipitor) 20 mg PO DAILY #90 tabs 12/12/23 losartan 50 mg-hydrochlorothiazide 1 tab PO DAILY #90 tabs 12/12/23 12.5 mg tablet omeprazole 40 mg capsule,delayed 40 mg PO DAILY #14 caps 05/18/24 release Allergies Allergy/AdvReac Type Severity Reaction Status Date / Time No Known Drug Allergies Allergy Verified 05/18/24 10:49 Review of Systems Review of Systems Narrative: Pertinent positive and negative findings as per HPI Patient History Medical History Sleep apnea in adult Chicken pox (~1976) Irritable bowel syndrome (~1997) Surgical History History of eye surgery (~1998) Family History Father Hyperlipidemia Grandfather Cancer Grandmother Mental health problem Grandfather Stroke Social History household members: spouse Smoking Status: Never smoker Smoking Status: Never smoker alcohol intake frequency: 3 or more drinks per day Alcohol type: beer, wine and hard liquor Exam Initial Vital Signs Initial Vital Signs: Vital Signs Temperature 97.0 F L 05/18/24 10:49 Pulse Rate 76 05/18/24 10:49 Respiratory Rate 14 05/18/24 10:49 Blood Pressure 140/90 05/18/24 10:49 Pulse Oximetry 100 05/18/24 10:49 Oxygen Delivery Method Room Air 05/18/24 10:49 General: Healthy appearing, in no acute distress. Able to give a complete and coherent history. Well-nourished well-developed HEENT: Moist mucous membranes, normal sclera with reactive pupils, Respiratory: Lungs are clear to auscultation, no wheezing no rales no rhonchi. Full and symmetrical air movement Cardiac: Regular rate and rhythm no murmurs no bruits Abdomen: Soft, mild tenderness through the upper abdomen without rebound or guarding. No skin changes. No flank pain (the low back pain is actually above the flanks and more bandlike upper abdominal distribution) Skin: Warm and dry, no rashes Neurologic: Grossly neurologically intact with no obvious asymmetries or abnormalities Extremities: No trauma, well perfused Psych: Cooperative, appropriate insight and affect Course Orders Ordered: ED Orders 05/18/24 10:54 EKG-12 Lead Stat 05/18/24 12:04 Complete Blood Count AUTO DIFF Stat Comprehensive Metabolic Panel Stat Lipase Stat 05/18/24 12:56 CT abdomen pelvis w con Stat Ondansetron HCl (Ondansetron 4 Mg/2 Ml Inj) 4 mg IV NOW PRN PRN Reason: Nausea And Vomiting Ondansetron HCl (Ondansetron 4 Mg Odt) 4 mg PO NOW PRN PRN Reason: Nausea And Vomiting Vital Signs Vital signs: Vital Signs - 8 hr 05/18/24 10:49 05/18/24 11:43 05/18/24 11:44 Temperature 97.0 F L Pulse Rate 76 64 Respiratory Rate 14 Blood Pressure 140/90 135/90 Pulse Oximetry 100 99 Oxygen Delivery Method Room Air 05/18/24 11:45 Temperature Pulse Rate Respiratory Rate Blood Pressure 135/90 Pulse Oximetry Oxygen Delivery Method Medical Decision Making Lab Data 05/18/24 12:04 05/18/24 12:04 Labs: Lab Results 05/18/24 Range/Units 12:04 WBC 4.0 L (4.5-11.0) X10^3/uL RBC 4.52 (4.5-5.9) X10^6/uL Hgb 14.0 (13.5-17.5) g/dL Hct 40.6 L (41-53) % MCV 89.8 (80-100) fL MCH 31.1 (26-34) PG MCHC 34.6 (30-36) % RDW 13.0 (11.6-14.8) % Plt Count 235 (150-400) X10^3/uL Neut % (Auto) 65.1 (50-75) % Lymph % (Auto) 25.2 (25-40) % [place] % (Auto) 7.4 (3-14) % Eos % (Auto) 1.5 L (2-4) % Baso % (Auto) 0.8 (0-2) % Neut # (Auto) 2600 (0096-1045) /uL Lymph # (Auto) 1000 L (7157-7093) /uL [place] # (Auto) 300 (0-900) /uL Eos # (Auto) 100 (0-450) /uL Baso # (Auto) 0 (0-100) /uL Sodium 137 (137-145) mmol/L Potassium 3.7 (3.4-5.1) mmol/L Chloride 105 (98-107) mmol/L Carbon Dioxide 24 (22-32) mmol/L BUN 11 (9-20) mg/dL Creatinine 0.89 (0.66-1.25) mg/dL Estimated GFR > 60 (>60) mL/min BUN/Creatinine Ratio 12.4 (6-22) Glucose 104 H (70-100) mg/dL Calcium 9.3 (8.4-10.2) mg/dL Total Bilirubin 1.1 (0.2-1.3) mg/dL AST 30 (17-59) IU/L ALT 34 (<50) IU/L Alkaline Phosphatase 67 (38-126) U/L Total Protein 7.8 (6.3-8.2) g/dL Albumin 4.8 (3.5-5.0) g/dL Globulin 3.0 (1.7-4.1) g/dL Albumin/Globulin Ratio 1.6 (1.0-2.8) Lipase 74 (23-300) U/L Urine Dip Bedside Urine Glucose Negative Bedside Urine Bilirubin - Negative Bedside Urine Ketone - Negative Urine Specific [place] 1.010 Bedside Urine Occult Blood - Negative Bedside Urine pH 6.0 Bedside Urine Protein - Negative Bedside Urine Urobilinogen - Negative Bedside Urine Nitrite - Negative Bedside Urine Leukocytes - Negative Esterase Point of care testing: Urine Dip Bedside Urine Glucose Negative Bedside Urine Bilirubin - Negative Bedside Urine Ketone - Negative Urine Specific [place] 1.010 Bedside Urine Occult Blood - Negative Bedside Urine pH 6.0 Bedside Urine Protein - Negative Bedside Urine Urobilinogen - Negative Bedside Urine Nitrite - Negative Bedside Urine Leukocytes - Negative Esterase Imaging Data CT scan - abdomen/pelvis: Radiologist's Impression: PROCEDURE: CT ABDOMEN PELVIS W CON INDICATIONS: RUQ pain, bandlike upper abd TECHNIQUE: After the administration of intravenous contrast, axial sections acquired from the lung bases to the pubic symphysis. Coronal and sagittal reformats were performed. For radiation dose reduction, the following was used: automated exposure control, adjustment of mA and/or kV according to patient size. COMPARISON: [facility], CT, CT ABDOMEN PELVIS W CON, 01/12/2022, 13:57. FINDINGS: Image quality: Diagnostic. Lower Chest: Eventration of right hemidiaphragm. Minimal atelectasis, right lung base. ABDOMEN: Liver: No solid mass. Gallbladder: No radiopaque gallstones or wall thickening. Biliary ducts: No biliary dilation. Pancreas: No ductal dilation. Spleen: Size is within normal limits. Adrenal Glands: No adrenal nodules. Kidneys and Ureters: No hydronephrosis. No solid mass. No complex renal cystic lesion which requires follow up. Stomach and Bowel: Normal colonic caliber, without significant wall thickening. NORMAL APPENDIX. Peritoneum: No abnormal intraperitoneal fluid. No free air. Ventral Wall: No significant ventral hernia. Abdominal Nodes: No retroperitoneal or mesenteric adenopathy by size criteria. Vessels: Aorta and inferior vena cava are normal in size. PELVIS: Pelvic Organs: Unremarkable. Bladder: No bladder wall thickening, accounting for underdistention. Pelvic Nodes: No enlarged lymph nodes. Miscellaneous: No inguinal hernias are seen. Bones: No aggressive osseous abnormality. Mild peripherally calcified disc protrusions at T9-T10 and L5-S1. IMPRESSION: 1. Minimal atelectasis, right lung base, potentially chronic. 2. No acute abdominal process. 3. Incidental mild chronic disc protrusions at T9-T10 and L5-S1. Dictated by: Eugenio Saenz M.D. on 05/18/2024 at 14:12 MDM Narrative Medical decision making narrative: CC: Bandlike/right upper quadrant abdominal pain intermittently present since April 24 Complicating co-morbidities: History of irritable bowel disease Data collected from: patient Medical records reviewed: Primary care note from proximally week ago for similar complaints is reviewed today Differential considered: Gallbladder disease, pancreatitis, ulcer/duodenal disease, constipation Exam documented above, pertinent findings include: Mild tenderness bandlike upper abdomen mostly in the right upper quadrant no rebound or guarding and specifically no tenderness over his gallbladder Lab Test results independently reviewed as above. Pertinent findings: CBC is reassuring Chemistries are unremarkable Independently reviewed EKG: EKG shows sinus rhythm at a rate of 69. No significant ischemic changes Imaging studies independently reviewed: Chest x-ray shows no significant abnormalities CT scan of the abdomen and pelvis shows no significant pathology. No gallstones or thickened gallbladder appreciated Treatments: zofran for nause Discussion: 49-year-old gentleman with intermittent upper abdominal bandlike pain present since April 24. Workup is actually quite reassuring. There was no evidence of infection, blood loss, structural abnormalities, gallbladder disease, obvious adenopathy, or lower lung abnormalities. Reviewed with him blood work and results of CT scan. He has an appointment scheduled with Dr. Schroeder on the . We talked about possible gastritis as a source of his pain. We will give him a prescription for Prilosec to try for 2 weeks to see if this influences anything. At this point there was no indication for additional imaging or hospitalization and he is safe for discharge Discharge Plan Departure Patient Disposition: Home Clinical Impression: Abdominal pain Qualifiers: Abdominal location: upper abdomen, unspecified Qualified Code(s): R10.10 - Upper abdominal pain, unspecified Instructions: DI for Abdominal Pain-Adult Activity Restrictions/Additional Instructions: Thank you for coming in today. Your workup was actually quite reassuring. Your CBC which shows white blood cells, that fight infection, was normal. There was no sign of anemia. Your chemistries looking at kidney function, electrolytes and liver studies was nice and normal. You do not have any evidence of pancreatitis. We did a CT scan of your abdomen and pelvis that looks at the bottom of your lungs, gallbladder, liver, pancreas, small and large intestine, kidneys as well as all of the bony structure. It was unremarkable. No signs of acute infection, no gallbladder disease, no enlarged lymph nodes, no masses or tumors. With the upper abdominal pain that you are experiencing I think of stomach abnormalities, pancreatic abnormalities and gallbladder disease. Is reasonable to try a stomach acid medicine, omeprazole, with the next 2 weeks to see if that makes any difference in your pain. A prescription was electronically transmitted to [facility] on [facility] I would recommend that you follow up with your primary care physician. If you find that you are getting worse or develop any new symptoms, please feel free to return to the emergency department for further evaluation. Prescriptions: New omeprazole 40 mg capsule,delayed release(DR/EC) 40 mg PO DAILY Qty: 14 0RF No Action atorvastatin [Lipitor] 20 mg tablet 20 mg PO DAILY Qty: 90 1RF losartan-hydrochlorothiazide 50-12.5 mg tablet 1 tab PO DAILY Qty: 90 1RF Referrals: Jose Schroeder MD [Primary Care Provider] - Stand Alone Forms: Patient Portal/API/Survey
--- NOTE | 2024-05-18 12:56 | DI.CT.S_ITS ---
PROCEDURE: CT ABDOMEN PELVIS W CON INDICATIONS: RUQ pain, bandlike upper abd TECHNIQUE: After the administration of intravenous contrast, axial sections acquired from the lung bases to the pubic symphysis. Coronal and sagittal reformats were performed. For radiation dose reduction, the following was used: automated exposure control, adjustment of mA and/or kV according to patient size. COMPARISON: [facility], CT, CT ABDOMEN PELVIS W CON, 01/12/2022, 13:57. FINDINGS: Image quality: Diagnostic. Lower Chest: Eventration of right hemidiaphragm. Minimal atelectasis, right lung base. ABDOMEN: Liver: No solid mass. Gallbladder: No radiopaque gallstones or wall thickening. Biliary ducts: No biliary dilation. Pancreas: No ductal dilation. Spleen: Size is within normal limits. Adrenal Glands: No adrenal nodules. Kidneys and Ureters: No hydronephrosis. No solid mass. No complex renal cystic lesion which requires follow up. Stomach and Bowel: Normal colonic caliber, without significant wall thickening. NORMAL APPENDIX. Peritoneum: No abnormal intraperitoneal fluid. No free air. Ventral Wall: No significant ventral hernia. Abdominal Nodes: No retroperitoneal or mesenteric adenopathy by size criteria. Vessels: Aorta and inferior vena cava are normal in size. PELVIS: Pelvic Organs: Unremarkable. Bladder: No bladder wall thickening, accounting for underdistention. Pelvic Nodes: No enlarged lymph nodes. Miscellaneous: No inguinal hernias are seen. Bones: No aggressive osseous abnormality. Mild peripherally calcified disc protrusions at T9-T10 and L5-S1. IMPRESSION: 1. Minimal atelectasis, right lung base, potentially chronic. 2. No acute abdominal process. 3. Incidental mild chronic disc protrusions at T9-T10 and L5-S1. Dictated by: Eugenio Saenz M.D. on 05/18/2024 at 14:12 Approved by: Eugenio Saenz M.D. on 05/18/2024 at 14:17
[2024-05-18 15:24] VITALS: BP 148/97; PULSE 74; O2SAT 98
== END 2024-05-18 15:30 | disposition home or self-care (01) ==
PROVIDERS: Emergency Provider Emergency Medicine; PCP Family Medicine
DX: R10.10 Upper abdominal pain, unspecified (principal); R10.31 Right lower quadrant pain; M54.50 Low back pain, unspecified
CPT/HCPCS: 36415; 74177; 80053; 81003; 83690; 85025; 93005; 93010; 99283; 99284; Q9967

== ENCOUNTER → 2024-06-28 10:30 | Outpatient (CLI) | payer BC, SELFPAY | PROVIDERS: PCP Family Medicine; Visit Provider Family Medicine | DX: K29.70 Gastritis, unspecified, without bleeding (principal) | CPT/HCPCS: 83013 ==

== ENCOUNTER → 2024-10-04 10:06 | Outpatient (CLI) | payer BC, SELFPAY ==
[2024-10-04 19:26] LABS: Add Manual Diff / Slide Review NO; Basophils Absolute Auto 0 /uL (0-100); Basophils Percent Auto 0.9 % (0-2); Eosinophils Absolute Auto 100 /uL (0-450); Hemoglobin 13.7 g/dL (13.5-17.5); Lymphocytes Absolute Auto 1100 /uL (1100-4500); Lymphocytes Percent Auto 30.9 % (25-40); Mean Corpuscular HGB Conc 34.1 % (30-36); Mean Corpuscular Hemoglobin 30.9 PG (26-34); Mean Corpuscular Volume 90.7 fL (80-100); Monocytes Absolute Auto 400 /uL (0-900); Monocytes Percent Auto 10.4 % (3-14); Neutrophils Absolute Auto 2000 /uL (1500-7000); Neutrophils Percent Auto 54.8 % (50-75); Platelet Count 222 X10^3/uL (150-400); Red Blood Cell Count 4.42 X10^6/uL (4.5-5.9); Red Cell Distribution Width 13.7 % (11.6-14.8); White Blood Cell Count 3.6 X10^3/uL (4.5-11.0)
[2024-10-04 19:51] LABS: Alanine Aminotransferase 25 IU/L (<50); Albumin 4.4 g/dL (3.5-5.0); Albumin Globulin Ratio 1.6 (1.0-2.8); Alkaline Phosphatase 76 U/L (38-126); Aspartate Aminotransferase 26 IU/L (17-59); BUN Creatinine Ratio 11.6 (6-22); Bilirubin Total 1.1 mg/dL (0.2-1.3); Blood Urea Nitrogen 11 mg/dL (9-20); Calcium 9.3 mg/dL (8.4-10.2); Carbon Dioxide 27 mmol/L (22-32); Chloride 103 mmol/L (98-107); Cholesterol 134 mg/dL (140-199); Estimated Glomerular Filt Rate > 60 mL/min (>60); Globulin 2.7 g/dL (1.7-4.1); Glucose 102 mg/dL (70-99); HDL Cholesterol 62 mg/dL (40-60); HEMOLYSIS < 15 (0-50); LDL Cholesterol Calculated 44 mg/dL (<100); Potassium 4.2 mmol/L (3.4-5.1); Sodium 138 mmol/L (137-145); Total Protein 7.1 g/dL (6.3-8.2); Triglycerides 139 mg/dL (35-150)
[2024-10-04 20:18] LABS: Prostate Specific Antigen Scrn 1.39 ng/mL (0.1-4.0)
[2024-10-04 20:40] LABS: HIV 1 & 2 Ab/Ag 4th Gen Combo NEGATIVE (NEGATIVE); Hep C Virus Ab w/Reflex Quant NEGATIVE s/c (NEGATIVE)
== END ==
PROVIDERS: PCP Family Medicine; Visit Provider Physician Assistant
DX: E78.2 Mixed hyperlipidemia (principal); K21.9 Gastro-esophageal reflux disease without esophagitis; D72.810 Lymphocytopenia; Z71.85 Encounter for immunization safety counseling; Z12.11 Encounter for screening for malignant neoplasm of colon; Z12.5 Encounter for screening for malignant neoplasm of prostate
CPT/HCPCS: 80053; 80061; 85025; 86803; 87389; G0103

== ENCOUNTER → 2025-04-17 09:27 | Outpatient (CLI) | payer BC, SELFPAY ==
[2025-04-17 18:52] LABS: Add Manual Diff / Slide Review NO; Hematocrit 40.5 % (41-53); Hemoglobin 14.1 g/dL (13.5-17.5); Lymphocytes Absolute Auto 1100 /uL (1100-4500); Mean Corpuscular HGB Conc 34.7 % (30-36); Mean Corpuscular Hemoglobin 30.8 PG (26-34); Mean Corpuscular Volume 88.8 fL (80-100); Platelet Count 241 X10^3/uL (150-400)
[2025-04-17 19:01] LABS: Hemoglobin A1C% w Est Avg Glu 5.6 % (4.0-6.0)
[2025-04-17 19:02] LABS: Blood Urea Nitrogen 13 mg/dL (9-20); Calcium 9.1 mg/dL (8.4-10.2); Carbon Dioxide 24 mmol/L (22-32); Chloride 106 mmol/L (98-107); Cholesterol 140 mg/dL (140-199); Estimated Glomerular Filt Rate > 60 mL/min (>60); Glucose 103 mg/dL (70-99); HDL Cholesterol 59 mg/dL (40-60); HEMOLYSIS < 15 (0-50); Potassium 4.1 mmol/L (3.4-5.1); Sodium 139 mmol/L (137-145); Triglycerides 220 mg/dL (35-150)
== END ==
PROVIDERS: PCP Family Medicine; Visit Provider Family Medicine
DX: E78.2 Mixed hyperlipidemia (principal); F10.90 Alcohol use, unspecified, uncomplicated; I10 Essential (primary) hypertension
CPT/HCPCS: 80048; 80061; 83036; 85025